=== PATIENT | male | born 1965 | race Caucasian/White ===

== ENCOUNTER 2018-05-23 04:22 | Inpatient (IN) | payer BC ==
[2018-05-23] MEDS ORDERED: Ondansetron 4 MG/2 ML SDV IVPUSH ONE (04:43)
[2018-05-23] MEDS ORDERED: Ketorolac 30 MG/ML SDV IVPUSH ONE (04:43)
[2018-05-23] MEDS: Sodium Chloride 0.9% 1,000 ML IV ONE ×2 (04:45→06:00)
--- NOTE | 2018-05-23 04:45 | EDM.PDOC ---
ED HPI GENERAL MEDICAL PROBLEM - General Stated Complaint: ABDOMINAL PAIN Time Seen by Provider: 05/23/18 04:44 Source of Information: Reports: Patient, Family - History of Present Illness INITIAL COMMENTS - FREE TEXT/NARRATIVE: 53 yo with sudden severe abd pain since mid night,cramping,associated with vomiting x4. Vomiting contains food eaten >12 h ago. Has a h/o of diverticulitis ,SBO,hemicolectomy, hernia repair x 3 in 2014. Has been doing relatively well since 2014. Abdomen Pain Score (Numeric/FACES): 10 - Related Data Allergies Allergy/AdvReac Type Severity Reaction Status Date / Time aspirin Allergy Cannot Verified 05/23/18 05:11 Remember morphine Allergy Rash Verified 05/23/18 05:11 Home Meds: Home Meds NK [No Known Home Meds] 05/23/18 [History] Past Medical History - Past Surgical History GI Surgical History: Reports: Hernia, Abdominal ED ROS GENERAL - Review of Systems Review Of Systems: ROS reveals no pertinent complaints other than HPI. ED EXAM, GI/ABD - Physical Exam Exam: See Below Exam Limited By: Uncooperative General Appearance: Alert, Anxious GI/Abdominal Exam: Distended, Tender (Male) Exam: Deferred Rectal (Males) Exam: Deferred Psychiatric: Anxious Skin Exam: Warm Course - Vital Signs Last Recorded V/S: Last Vital Signs Temp 97.6 F 05/23/18 05:05 Pulse Resp 17 05/23/18 05:05 BP 138/87 05/23/18 05:05 Pulse Ox 97 05/23/18 05:05 - Orders/Labs/Meds Orders: Active Orders 24 hr Category Date Time Status Abdomen Pelvis w Cont [CT] Stat Exams 05/23/18 04:43 Ordered UA W/MICROSCOPIC [URIN] Stat Lab 05/23/18 04:43 Ordered Diatrizoate Shana/Diatrizoate Na [Gastrografin 37%] Med 05/23/18 05:30 Active 30 ml PO . DIRECTED fentaNYL [Sublimaze] Med 05/23/18 04:43 Active 50 mcg IVPUSH Q30M PRN Medication Orders Diatrizoate Meglum/Diatrizoate Sod (Gastrografin 37%) 30 ml PO . DIRECTED ESTHER Last Admin: 05/23/18 06:48 Dose: 30 ml Fentanyl (Sublimaze) 50 mcg IVPUSH Q30M PRN PRN Reason: Breakthrough Pain Last Admin: 05/23/18 05:24 Dose: 50 mcg Labs: Laboratory Tests 05/23/18 05/23/18 Range/Units 04:52 04:52 WBC 15.1 H (4.5-12.0) X10-3/uL RBC 5.67 (4.30-5.75) x10(6)uL Hgb 17.0 H D (11.5-15.5) g/dL Hct 50.2 D (30.0-51.3) % MCV 88.5 (80-96) fL MCH 29.9 (27.7-33.6) pg MCHC 33.8 (32.2-35.4) g/dL RDW 12.6 (11.5-15.5) % Plt Count 248 (125-369) X10(3)uL MPV 10.0 (7.4-10.4) fL Add Manual Diff Yes Neutrophils % (Manual) 87 H (46-82) % Lymphocytes % (Manual) 11 L (13-37) % Monocytes % (Manual) 2 L (4-12) % Sodium 140 (135-145) mmol/L Potassium 4.5 (3.5-5.3) mmol/L Chloride 103 (100-110) mmol/L Carbon Dioxide 25 (21-32) mmol/L BUN 22 H (7-18) mg/dL Creatinine 1.3 (0.70-1.30) mg/dL Est Cr Clr Drug Dosing TNP Estimated GFR (MDRD) 58 L (>60) BUN/Creatinine Ratio 16.9 (9-20) Glucose 165 H (80-116) mg/dL Calcium 9.0 (8.6-10.2) mg/dL Total Bilirubin 0.8 (0.1-1.3) mg/dL AST 13 (5-25) IU/L ALT 29 (12-36) U/L Alkaline Phosphatase 68 (56-112) IU/L Total Protein 7.9 (6.0-8.0) g/dL Albumin 4.0 (3.5-5.2) g/dL Globulin 3.9 g/dL Albumin/Globulin Ratio 1.0 Amylase 53 (25-115) U/L Meds: Medications Generic Name Dose Route Start Last Admin Trade Name Justin PRN Reason Stop Dose Admin Diatrizoate Meglum/Diatrizoate Sod 30 ml 05/23/18 05:30 05/23/18 06:48 Gastrografin 37% PO 30 ml . DIRECTED ESTHER Administration Fentanyl 50 mcg 05/23/18 04:43 05/23/18 05:24 Sublimaze IVPUSH 50 mcg Q30M PRN Administration Breakthrough Pain Discontinued Medications Generic Name Dose Route Start Last Admin Trade Name Justin PRN Reason Stop Dose Admin Sodium Chloride 1,000 mls @ 999 mls/hr 05/23/18 04:45 05/23/18 06:00 Normal Saline IV 05/23/18 05:45 999 mls/hr .BOLUS ONE Administration Iopamidol 100 ml 05/23/18 05:30 05/23/18 06:48 Isovue-370 (76%) IV 05/23/18 05:31 100 ml . DIRECTED ONE Administration Ketorolac Tromethamine 30 mg 05/23/18 04:43 05/23/18 04:54 Toradol IVPUSH 05/23/18 04:44 30 mg ONETIME ONE Administration Ondansetron HCl 8 mg 05/23/18 04:43 05/23/18 04:54 Zofran IVPUSH 05/23/18 04:44 8 mg ONETIME ONE Administration Departure - Departure Time of Disposition: 06:53 Disposition: Still A Patient 30 Condition: Poor Clinical Impression: Abdominal pain, Small bowel obstruction - Discharge Information Referrals: PCP,None [Primary Care Provider] - - Problem List & Annotations (1) Small bowel obstruction SNOMED Code(s): 687929534 Code(s): K56.69 - OTHER INTESTINAL OBSTRUCTION * DO NOT USE * Status: Acute Current Visit: No - Problem List Review Problem List Initiated/Reviewed/Updated: Yes - My Orders Last 24 Hours: My Active Orders 05/23/18 04:43 Abdomen Pelvis w Cont [CT] Stat UA W/MICROSCOPIC [URIN] Stat fentaNYL [Sublimaze] 50 mcg IVPUSH Q30M PRN 05/23/18 05:30 Diatrizoate Shana/Diatrizoate Na [Gastrografin 37%] 30 ml PO . DIRECTED - Assessment/Plan Last 24 Hours: My Active Orders 05/23/18 04:43 Abdomen Pelvis w Cont [CT] Stat UA W/MICROSCOPIC [URIN] Stat fentaNYL [Sublimaze] 50 mcg IVPUSH Q30M PRN 05/23/18 05:30 Diatrizoate Shana/Diatrizoate Na [Gastrografin 37%] 30 ml PO . DIRECTED Plan: I suspect SBO. Will give IVF,fentanyl ,and obtain CT abd Pelvis. Dr Dodge will take over care.
[2018-05-23] MEDS: fentaNYL 100 MCG/2 ML SDV IVPUSH PRN ×7 (05:24→21:52)
[2018-05-23] MEDS ORDERED: Diatrizoate Meglumine/Diatrizoate Sodium 37% 30 ML Bottle PO SCH (05:30)
[2018-05-23] MEDS ORDERED: Iopamidol 755 Mg/ML 100 ML Bottle IV ONE (05:30)
[2018-05-23] MEDS ORDERED: Lidocaine 2% Jelly 5 ML Urojet MUCMEM ONE (07:21)
[2018-05-23] MEDS ORDERED: Lidocaine 2% HCl 6 ML JEL.PF.APP ONE (07:29)
[2018-05-23] MEDS ORDERED: Sodium Chloride 0.9% 1,000 ML IV SCH ×2 (07:30→12:15)
[2018-05-23] MEDS ORDERED: fentaNYL 100 MCG/2 ML SDV IVPUSH ONE (08:37)
[2018-05-23] MEDS ORDERED: Lactated Ringers 1,000 ML IV SCH (08:45)
[2018-05-23] MEDS ORDERED: Ondansetron 4 MG Tab.DIS PO PRN (09:29)
--- NOTE | 2018-05-23 12:13 | PCM.HP ---
H&P History of Present Illness - General Date of Service: 05/23/18 Admit Problem/Dx: Admission Diagnosis/Problem Admission Diagnosis/Problem Partial small bowel obstruction Source of Information: Patient, Family, Old Records, Provider History Limitations: Reports: No Limitations - History of Present Illness Initial Comments - Free Text/Narative: Patient is a 53-year-old male in very good health who has a history of partial sigmoid resection in November 2013. He had difficulties with a ventral hernia following the procedure and had initial repair in February 2014 followed by a redo again with mesh in May 2014. From February 2014 to August 2014 at 3 hospitalizations for partial bowel obstruction with adhesions which resolved spontaneously with decompression. He's had no problems since that time. Last night he and his were out at a birthday green party and when they got home he started to feel nauseated. He had some mild abdominal pain. Fairly rapidly worsened until about 10:30 PM he started vomiting and didn't stop until 4 AM when he asked his to bring him into the emergency department. He continued to vomit until an NG was placed. He is feeling better now that he's had some pain medicine. He had no fevers, no chills, no sweats. Has otherwise been in good health. Past medical history: As above. Patient also has a history of mild splenomegaly on CT scan in the past which is unchanged on this morning CT. 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 He drinks about 2 beers a week usually just on the weekend with friends. He is and his Celeste is here with him today. He has 2 children, a 9-year-old and a 14-year-old. Family history: The patient's mother is living and had a breast cancer. She 75. The patient's father has gout 76. He has 2 sisters and 2 brothers who are in good health. Abdomen Pain Score (Numeric/FACES): 6 - Related Data Allergies/Adverse Reactions: Allergies Allergy/AdvReac Type Severity Reaction Status Date / Time aspirin Allergy Cannot Verified 05/23/18 05:11 Remember morphine Allergy Rash Verified 05/23/18 05:11 Home Medications: Home Meds NK [No Known Home Meds] 05/23/18 [History] Past Medical History HEENT History: Reports: Impaired Vision Gastrointestinal History: Reports: Bowel Obstruction, Diverticulosis, Hemorrhoids, Other (See Below) Other Gastrointestinal History: inguinal hernia and visceral hernia Musculoskeletal History: Reports: Back Pain, Chronic Neurological History: Reports: Brain Injury, Concussion, Head Trauma, Other ( See Below) Other Neuro History: short term memory impairment Dermatologic History: Reports: None - Infectious Disease History Infectious Disease History: Reports: Chicken Pox, Mumps - Past Surgical History Head Surgeries/Procedures: Reports: None GI Surgical History: Reports: Appendectomy, Colon, Colonoscopy, Hernia, Abdominal, Hernia, Inguinal, Hernia Repair/Other Neurological Surgical History: Reports: None Musculoskeletal Surgical History: Reports: None Dermatological Surgical History: Reports: None Social & Family History - Family History GI: Reports: Celiac Disease Musculoskeletal: Reports: Gout Neurological: Reports: Dementia, Migraines Psychiatric: Reports: Anxiety, Autism Dermatologic: Reports: None Oncologic: Reports: Breast, Colon - Tobacco Use Smoking Status *Q: Heavy Tobacco Smoker Years of Tobacco use: 30 Packs/Tins Daily: 0.5 Month/Year Tobacco Last Used: 05/2018 Tobacco Use Comment: Would like nicotine patches possibly. Second Hand Smoke Exposure: No - Caffeine Use Caffeine Use: Reports: Soda Caffeine Use Comment: Has about a 20oz mountain dew a day - Alcohol Use Days Per Week of Alcohol Use: 2 Number of Drinks Per Day: 1 Total Drinks Per Week: 2 Date of Last Drink: 05/22/18 Time of Last Drink: 19:00 - Recreational Drug Use Recreational Drug Use: No H&P Review of Systems - Review of Systems: Review Of Systems: ROS reveals no pertinent complaints other than HPI. Exam - Exam Exam: See Below - Vital Signs Vital Signs: Last Vital Signs Temp 36.3 C 05/23/18 10:00 Pulse 84 05/23/18 10:00 Resp 16 05/23/18 10:00 BP 153/102 H 05/23/18 10:00 Pulse Ox 99 05/23/18 10:00 Weight: 105.959 kg - Exam General: Sedated (from pain medication) HEENT: PERRLA, Other (conjunctiva injected.) Neck: Supple Lungs: Clear to Auscultation, Normal Respiratory Effort Cardiovascular: Regular Rate, Regular Rhythm, Normal S1, Normal S2 GI/Abdominal Exam: Distended, Tender, Abnormal Bowel Sounds (very diminished and high sounding when present. Abd tympanitic, with mild tenderness over the lower abd.) Extremities: No Pedal Edema - Patient Data Lab Results Last 24 hrs: Laboratory Results - last 24 hr 05/23/18 05/23/18 05/23/18 Range/Units 04:52 04:52 08:55 WBC 15.1 H (4.5-12.0) X10-3/uL RBC 5.67 (4.30-5.75) x10(6)uL Hgb 17.0 H D (11.5-15.5) g/dL Hct 50.2 D (30.0-51.3) % MCV 88.5 (80-96) fL MCH 29.9 (27.7-33.6) pg MCHC 33.8 (32.2-35.4) g/dL RDW 12.6 (11.5-15.5) % Plt Count 248 (125-369) X10(3)uL MPV 10.0 (7.4-10.4) fL Add Manual Diff Yes Neutrophils % (Manual) 87 H (46-82) % Lymphocytes % (Manual) 11 L (13-37) % Monocytes % (Manual) 2 L (4-12) % Sodium 140 (135-145) mmol/L Potassium 4.5 (3.5-5.3) mmol/L Chloride 103 (100-110) mmol/L Carbon Dioxide 25 (21-32) mmol/L BUN 22 H (7-18) mg/dL Creatinine 1.3 (0.70-1.30) mg/dL Est Cr Clr Drug Dosing TNP Estimated GFR (MDRD) 58 L (>60) BUN/Creatinine Ratio 16.9 (9-20) Glucose 165 H (80-116) mg/dL Lactic Acid (0.4-2.2) mmol/L Calcium 9.0 (8.6-10.2) mg/dL Total Bilirubin 0.8 (0.1-1.3) mg/dL AST 13 (5-25) IU/L ALT 29 (12-36) U/L Alkaline Phosphatase 68 (56-112) IU/L Total Protein 7.9 (6.0-8.0) g/dL Albumin 4.0 (3.5-5.2) g/dL Globulin 3.9 g/dL Albumin/Globulin Ratio 1.0 Amylase 53 (25-115) U/L Urine Color Yellow (YELLOW) Urine Appearance Clear (CLEAR) Urine pH 5.0 (5.0-6.5) Ur Specific [place] 1.015 (1.010-1.025) Urine Protein Negative (NEGATIVE) mg/dL Urine Glucose (UA) Normal (NEGATIVE) mg/dL Urine Ketones Negative (NEGATIVE) mg/dL Urine Occult Blood Negative (NEGATIVE) Urine Nitrite Negative (NEGATIVE) Urine Bilirubin Small H (NEGATIVE) Urine Urobilinogen 1 H (NEGATIVE) mg/dL Ur Leukocyte Esterase Negative (NEGATIVE) Urine WBC 0-5 (0) Ur Squamous Epith Cells Few H (NS,R,O) Urine Bacteria Few H (NS) 05/23/18 Range/Units 09:10 WBC (4.5-12.0) X10-3/uL RBC (4.30-5.75) x10(6)uL Hgb (11.5-15.5) g/dL Hct (30.0-51.3) % MCV (80-96) fL MCH (27.7-33.6) pg MCHC (32.2-35.4) g/dL RDW (11.5-15.5) % Plt Count (125-369) X10(3)uL MPV (7.4-10.4) fL Add Manual Diff Neutrophils % (Manual) (46-82) % Lymphocytes % (Manual) (13-37) % Monocytes % (Manual) (4-12) % Sodium (135-145) mmol/L Potassium (3.5-5.3) mmol/L Chloride (100-110) mmol/L Carbon Dioxide (21-32) mmol/L BUN (7-18) mg/dL Creatinine (0.70-1.30) mg/dL Est Cr Clr Drug Dosing Estimated GFR (MDRD) (>60) BUN/Creatinine Ratio (9-20) Glucose (80-116) mg/dL Lactic Acid 1.3 (0.4-2.2) mmol/L Calcium (8.6-10.2) mg/dL Total Bilirubin (0.1-1.3) mg/dL AST (5-25) IU/L ALT (12-36) U/L Alkaline Phosphatase (56-112) IU/L Total Protein (6.0-8.0) g/dL Albumin (3.5-5.2) g/dL Globulin g/dL Albumin/Globulin Ratio Amylase (25-115) U/L Urine Color (YELLOW) Urine Appearance (CLEAR) Urine pH (5.0-6.5) Ur Specific [place] (1.010-1.025) Urine Protein (NEGATIVE) mg/dL Urine Glucose (UA) (NEGATIVE) mg/dL Urine Ketones (NEGATIVE) mg/dL Urine Occult Blood (NEGATIVE) Urine Nitrite (NEGATIVE) Urine Bilirubin (NEGATIVE) Urine Urobilinogen (NEGATIVE) mg/dL Ur Leukocyte Esterase (NEGATIVE) Urine WBC (0) Ur Squamous Epith Cells (NS,R,O) Urine Bacteria (NS) Result Diagrams: 05/23/18 04:52 05/23/18 04:52 - Problem List (1) Partial small bowel obstruction SNOMED Code(s): 109727933 ICD Code: K56.600 - PARTIAL INTESTINAL OBSTRUCTION, UNSPECIFIED TO CAUSE Status: Acute Current Visit: Yes Problem Details: CT scan shows a partial small bowel obstruction. Patient has an NG placed. He is receiving IV fluids. Pain management with fentanyl. Nausea management with Zofran. Dr. Sterling has seen the patient and will follow. Problem List Initiated/Reviewed/Updated: Yes Orders Last 24hrs: Active Orders 24 hr Category Date Time Status Patient Status [ADT] Routine ADT 05/23/18 09:29 Active Gastrointestinal Tube Mgmt [RC] 08,16,00 Care 05/23/18 07:24 Active Height and Weight [RC] 06 Care 05/23/18 09:29 Active Intake and Output [RC] 06,14,22 Care 05/23/18 09:30 Active Notify Provider Consults [RC] ASDIRECTED Care 05/23/18 09:33 Active Notify Provider Vital Signs [RC] ASDIRECTED Care 05/23/18 09:30 Active Oxygen Therapy [RC] PRN Care 05/23/18 09:29 Active Up ad Mimi [RC] ASDIRECTED Care 05/23/18 09:29 Active VTE/DVT Education [RC] Per Unit Routine Care 05/23/18 09:29 Active Vital Signs [RC] Q4H Care 05/23/18 09:29 Active Consult to Physician [CONS] Routine Cons 05/23/18 09:32 Ordered Nothing per Oral Now Diet [DIET] Diet 05/23/18 Breakfast Ordered Abdomen Pelvis w Cont [CT] Stat Exams 05/23/18 04:43 Taken CBC WITH AUTO DIFF [HEME] AM Lab 05/24/18 05:11 Ordered CBC WITH AUTO DIFF [HEME] Timed Lab 05/23/18 15:00 Ordered COMPREHENSIVE METABOLIC PN,CMP [CHEM] AM Lab 05/24/18 05:11 Ordered Diatrizoate Shana/Diatrizoate Na [Gastrografin 37%] Med 05/23/18 05:30 Active 30 ml PO . DIRECTED Lactated Ringers [Ringers, Lactated] 1,000 ml Med 05/23/18 08:45 Active IV ASDIRECTED Ondansetron [Zofran ODT] Med 05/23/18 09:29 Active 4 mg PO Q4H PRN Sodium Chloride 0.9% @ 100 MLS/HR(1,000ml) Med 05/23/18 12:15 Ordered Sodium Chloride 0.9% [Normal Saline] 1,000 ml IV ASDIRECTED Sodium Chloride 0.9% [Normal Saline] 1,000 ml Med 05/23/18 07:30 Active IV ASDIRECTED Sodium Chloride 0.9% [Normal Saline] 1,000 ml Med 05/23/18 12:15 Ordered IV ASDIRECTED fentaNYL [Sublimaze] Med 05/23/18 04:43 Active 50 mcg IVPUSH Q30M PRN fentaNYL [Sublimaze] Med 05/23/18 09:32 Active 50 mcg IVPUSH Q30M PRN Antiembolic Hose [OM.PC] Per Unit Routine Oth 05/23/18 09:30 Ordered Sequential Compression Device [OM.PC] Per Unit Routine Oth 05/23/18 09:30 Ordered Resuscitation Status Routine Resus Stat 05/23/18 09:29 Ordered Medication Orders Diatrizoate Meglum/Diatrizoate Sod (Gastrografin 37%) 30 ml PO . DIRECTED ESTHER Last Admin: 05/23/18 06:48 Dose: 30 ml Fentanyl (Sublimaze) 50 mcg IVPUSH Q30M PRN PRN Reason: Breakthrough Pain Last Admin: 05/23/18 11:20 Dose: 50 mcg Admin: 05/23/18 06:58 Dose: 50 mcg Admin: 05/23/18 05:24 Dose: 50 mcg Fentanyl (Sublimaze) 50 mcg IVPUSH Q30M PRN PRN Reason: abd pain Sodium Chloride (Normal Saline) 1,000 mls @ 100 mls/hr IV ASDIRECTED ESTHER Lactated Ringer's (Ringers, Lactated) 1,000 mls @ 250 mls/hr IV ASDIRECTED ESTHER Last Admin: 05/23/18 08:50 Dose: 250 mls/hr Sodium Chloride (Normal Saline) 1,000 mls @ 100 mls/hr IV ASDIRECTED ESTHER Sodium Chloride (Normal Saline) 1,000 mls @ 250 mls/hr IV ASDIRECTED ESTHER Stop: 05/23/18 16:14 Ondansetron HCl (Zofran Odt) 4 mg PO Q4H PRN PRN Reason: nausea, able to take PO Assessment/Plan Comment:: Code status discussed with patient and and patient is a full code.
--- NOTE | 2018-05-23 12:33 | ER ---
DATE SEEN: 05/23/2018 ADMISSION NOTE ADDENDUM: The patient was previously seen by Dr. Silver early in the morning, at 4:30 in the morning. He has results of the CAT scan that has returned. 1. He has a partial small bowel obstruction, no pneumatosis, no free air. Mild fluid noted in the pelvis - small amount of ascites. 2. Partial proximal sigmoid resection. 3. Status post umbilical hernia repair. 4. Unchanged left inguinal hernia with fat present. 5. Mild atelectasis. 6. Gallstones. 7. Several small nodes in the base of the lung. The patient's white count is 15,000, PMNs 87, lymphs 11, monos 2. Sodium 140, potassium 4.5, otherwise normal electrolytes. BUN and creatinine ratio 16.9, glucose 169. Otherwise, CMP is normal. Lactate pending. ASSESSMENT: The patient has new partial small bowel obstruction, low grade, dilation of proximal loops. PLAN: Admit. Status has been discussed with Dr. Sterling and Dr. Stafford. The patient received 100 mcg of fentanyl. Lactate was ordered and lactated Ringer's started at 250 an hour. NG tube return was 600 mL. Put out 300 mL of urine. /[id number] JESUS/SHAYNE
--- NOTE | 2018-05-23 17:13 | CONS ---
DATE OF CONSULTATION: 05/23/2018 HISTORY OF PRESENT ILLNESS: This 53-year-old male presents to the emergency room with a several-hour history of abdominal pain. He says yesterday afternoon, he noted some mild discomfort after eating and drinking a small amount. During the night, he developed more severe abdominal pain and had several episodes of vomiting and this prompted his presentation to the emergency room. He says his pain is somewhat diffuse across the mid abdomen. He has no back pain. There has been no difficulty voiding. He says his last bowel movement was a small stool at midnight. The patient notes that he has had episodes of pain somewhat similar to this in the past, but does not think that any of them have been this severe. Some of these episodes have necessitated hospitalization for partial bowel obstruction, but have resolved spontaneously. The patient's past medical history is notable for previous surgeries. These included a sigmoid colon resection and then ventral hernia repairs x2 with mesh. These were performed in 2013. He has had some pain from the mesh intermittently, but does not think his current pain feels like that. He is otherwise generally healthy. MEDICATIONS: He does not take any routine prescription medications at home. ALLERGIES: He is allergic to aspirin and morphine. 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 FAMILY HISTORY: Noncontributory. SYSTEM REVIEW: The patient denies any recent cough, cold, or sore throat symptoms. He has not been experiencing any chest pain or palpitations. No difficulty breathing or cough. No difficulty voiding. PHYSICAL EXAMINATION: VITAL SIGNS: Temperature 97.6, pulse 89, blood pressure is 144/94, weight is 232 pounds. GENERAL: The patient is an adult male. He is resting comfortably after IV analgesics and is somewhat sleepy from this. HEENT: His head is normocephalic. No scleral icterus. No cervical masses. HEART: Regular without murmur. LUNGS: Clear. ABDOMEN: The patient's abdomen shows diffuse distention. It is, however, soft. I do not note any abdominal mass or guarding. There is mild tenderness to direct palpation, which is not well localized. Surgical scars were intact. I do not feel any additional hernias. No inguinal masses or tenderness are identified. EXTREMITIES: No edema or tenderness. DIAGNOSTIC DATA: Laboratory studies show an elevated serum white blood cell count of 15,100, hemoglobin is 17, 87% segs, no bands. Potassium is normal at 4.5, BUN is 22, creatinine is 1.3. Liver functions are normal. Urinalysis unremarkable. CT scan of the abdomen has been performed with oral contrast. This was interpreted as showing a mild partial small bowel obstruction with mild mid small bowel dilation and collapsed distal small bowel, and no mass or other acute abnormalities were identified. IMPRESSION: Partial small bowel obstruction, likely secondary to adhesions. RECOMMENDATIONS: We will plan period of observation with IV hydration, NG suction, and pain control. Further clinical treatment will depend on the patient's clinical course and response to attempted conservative management. /[id number] MICK/SHAYNE SUBRAMANIAN
[2018-05-23] MEDS ORDERED: Ondansetron 4 MG/2 ML SDV IVPUSH PRN (18:24)
--- NOTE | 2018-05-23 19:20 | PCM.SURGPN ---
- General Info Date of Service: 05/23/18 - Review of Systems Systems Review Comment:: No flatus during the day. 250cc out NG last shift and not much coming out now even after adjusting tube. Abdomen remains distended but soft. Intermittantly tender upper abdomen. WBC improved this PM - Patient Data Vitals - Most Recent: Last Vital Signs Temp 97.8 F 05/23/18 14:00 Pulse 71 05/23/18 14:00 Resp 18 05/23/18 14:00 BP 157/97 H 05/23/18 14:00 Pulse Ox 95 05/23/18 14:00 Weight - Most Recent: 233 lb 9.6 oz I&O - Last 24 Hours: Intake & Output 05/23/18 05/23/18 05/23/18 06:59 14:59 22:59 Intake Total 1000 2250 20 Output Total 1125 270 Balance 1000 1125 -250 Lab Results Last 24 Hrs: Laboratory Results - last 24 hr 05/23/18 05/23/18 05/23/18 Range/Units 04:52 04:52 08:55 WBC 15.1 H (4.5-12.0) X10-3/uL RBC 5.67 (4.30-5.75) x10(6)uL Hgb 17.0 H D (11.5-15.5) g/dL Hct 50.2 D (30.0-51.3) % MCV 88.5 (80-96) fL MCH 29.9 (27.7-33.6) pg MCHC 33.8 (32.2-35.4) g/dL RDW 12.6 (11.5-15.5) % Plt Count 248 (125-369) X10(3)uL MPV 10.0 (7.4-10.4) fL Neut % (Auto) (46-82) % Lymph % (Auto) (13-37) % [place] % (Auto) (4-12) % Eos % (Auto) (1.0-5.0) % Baso % (Auto) (0-2) % Neut # (Auto) (1.6-8.3) # Lymph # (Auto) (0.6-5.0) # [place] # (Auto) (0.0-1.3) # Eos # (Auto) (0.0-0.8) # Baso # (Auto) (0.0-0.2) # Add Manual Diff Yes Neutrophils % (Manual) 87 H (46-82) % Lymphocytes % (Manual) 11 L (13-37) % Monocytes % (Manual) 2 L (4-12) % Sodium 140 (135-145) mmol/L Potassium 4.5 (3.5-5.3) mmol/L Chloride 103 (100-110) mmol/L Carbon Dioxide 25 (21-32) mmol/L BUN 22 H (7-18) mg/dL Creatinine 1.3 (0.70-1.30) mg/dL Est Cr Clr Drug Dosing TNP Estimated GFR (MDRD) 58 L (>60) BUN/Creatinine Ratio 16.9 (9-20) Glucose 165 H (80-116) mg/dL Lactic Acid (0.4-2.2) mmol/L Calcium 9.0 (8.6-10.2) mg/dL Total Bilirubin 0.8 (0.1-1.3) mg/dL AST 13 (5-25) IU/L ALT 29 (12-36) U/L Alkaline Phosphatase 68 (56-112) IU/L Total Protein 7.9 (6.0-8.0) g/dL Albumin 4.0 (3.5-5.2) g/dL Globulin 3.9 g/dL Albumin/Globulin Ratio 1.0 Amylase 53 (25-115) U/L Urine Color Yellow (YELLOW) Urine Appearance Clear (CLEAR) Urine pH 5.0 (5.0-6.5) Ur Specific [place] 1.015 (1.010-1.025) Urine Protein Negative (NEGATIVE) mg/dL Urine Glucose (UA) Normal (NEGATIVE) mg/dL Urine Ketones Negative (NEGATIVE) mg/dL Urine Occult Blood Negative (NEGATIVE) Urine Nitrite Negative (NEGATIVE) Urine Bilirubin Small H (NEGATIVE) Urine Urobilinogen 1 H (NEGATIVE) mg/dL Ur Leukocyte Esterase Negative (NEGATIVE) Urine WBC 0-5 (0) Ur Squamous Epith Cells Few H (NS,R,O) Urine Bacteria Few H (NS) 05/23/18 05/23/18 Range/Units 09:10 15:04 WBC 12.7 H (4.5-12.0) X10-3/uL RBC 5.04 (4.30-5.75) x10(6)uL Hgb 15.2 (11.5-15.5) g/dL Hct 44.9 (30.0-51.3) % MCV 89.0 (80-96) fL MCH 30.1 (27.7-33.6) pg MCHC 33.9 (32.2-35.4) g/dL RDW 12.9 (11.5-15.5) % Plt Count 188 (125-369) X10(3)uL MPV 9.6 (7.4-10.4) fL Neut % (Auto) 80.4 (46-82) % Lymph % (Auto) 12.0 L (13-37) % [place] % (Auto) 6.2 (4-12) % Eos % (Auto) 1 (1.0-5.0) % Baso % (Auto) 1 (0-2) % Neut # (Auto) 10.2 H (1.6-8.3) # Lymph # (Auto) 1.5 (0.6-5.0) # [place] # (Auto) 0.8 (0.0-1.3) # Eos # (Auto) 0.1 (0.0-0.8) # Baso # (Auto) 0.1 (0.0-0.2) # Add Manual Diff Neutrophils % (Manual) (46-82) % Lymphocytes % (Manual) (13-37) % Monocytes % (Manual) (4-12) % Sodium (135-145) mmol/L Potassium (3.5-5.3) mmol/L Chloride (100-110) mmol/L Carbon Dioxide (21-32) mmol/L BUN (7-18) mg/dL Creatinine (0.70-1.30) mg/dL Est Cr Clr Drug Dosing Estimated GFR (MDRD) (>60) BUN/Creatinine Ratio (9-20) Glucose (80-116) mg/dL Lactic Acid 1.3 (0.4-2.2) mmol/L Calcium (8.6-10.2) mg/dL Total Bilirubin (0.1-1.3) mg/dL AST (5-25) IU/L ALT (12-36) U/L Alkaline Phosphatase (56-112) IU/L Total Protein (6.0-8.0) g/dL Albumin (3.5-5.2) g/dL Globulin g/dL Albumin/Globulin Ratio Amylase (25-115) U/L Urine Color (YELLOW) Urine Appearance (CLEAR) Urine pH (5.0-6.5) Ur Specific [place] (1.010-1.025) Urine Protein (NEGATIVE) mg/dL Urine Glucose (UA) (NEGATIVE) mg/dL Urine Ketones (NEGATIVE) mg/dL Urine Occult Blood (NEGATIVE) Urine Nitrite (NEGATIVE) Urine Bilirubin (NEGATIVE) Urine Urobilinogen (NEGATIVE) mg/dL Ur Leukocyte Esterase (NEGATIVE) Urine WBC (0) Ur Squamous Epith Cells (NS,R,O) Urine Bacteria (NS) Med Orders - Current: Current Medications Diatrizoate Meglum/Diatrizoate Sod (Gastrografin 37%) 30 ml PO . DIRECTED [facility] Last Admin: 05/23/18 06:48 Dose: 30 ml Fentanyl (Sublimaze) 50 mcg IVPUSH Q30M PRN PRN Reason: Breakthrough Pain Last Admin: 05/23/18 19:07 Dose: 50 mcg Fentanyl (Sublimaze) 50 mcg IVPUSH Q30M PRN PRN Reason: abd pain Lactated Ringer's (Ringers, Lactated) 1,000 mls @ 250 mls/hr IV ASDIRECTED [facility] Last Admin: 05/23/18 08:50 Dose: 250 mls/hr Sodium Chloride (Normal Saline) 1,000 mls @ 100 mls/hr IV ASDIRECTED [facility] Nicotine Polacrilex (Commit) 2 mg CHEW Q1H PRN PRN Reason: tobacco abuse Ondansetron HCl (Zofran Odt) 4 mg PO Q4H PRN PRN Reason: nausea, able to take PO Last Admin: 05/23/18 18:08 Dose: 4 mg Ondansetron HCl (Zofran) 4 mg IVPUSH Q4H PRN PRN Reason: Nausea/Vomiting Discontinued Medications Fentanyl (Sublimaze) 100 mcg IVPUSH ONETIME ONE Stop: 05/23/18 08:38 Last Admin: 05/23/18 08:47 Dose: 100 mcg Sodium Chloride (Normal Saline) 1,000 mls @ 999 mls/hr IV .BOLUS ONE Stop: 05/23/18 05:45 Last Infusion: 05/23/18 07:00 Dose: 100 mls/hr Sodium Chloride (Normal Saline) 1,000 mls @ 100 mls/hr IV ASDIRECTED [facility] Sodium Chloride (Normal Saline) 1,000 mls @ 250 mls/hr IV ASDIRECTED [facility] Stop: 05/23/18 16:14 Last Admin: 05/23/18 13:00 Dose: 250 mls/hr Influenza Virus Vaccine (Pharmacy To Dose - Influenza Vaccine) 1 each IM ONETIME ONE Stop: 05/23/18 10:42 Iopamidol (Isovue-370 (76%)) 100 ml IV . DIRECTED ONE Stop: 05/23/18 05:31 Last Admin: 05/23/18 06:48 Dose: 100 ml Ketorolac Tromethamine (Toradol) 30 mg IVPUSH ONETIME ONE Stop: 05/23/18 04:44 Last Admin: 05/23/18 04:54 Dose: 30 mg Lidocaine HCl (Xylocaine 2% Jelly) 5 ml MUCMEM ONETIME ONE Stop: 05/23/18 07:22 Last Admin: 05/23/18 08:15 Dose: Not Given Lidocaine HCl (Glydo) Confirm Administered Dose 6 ml .ROUTE .STK-MED ONE Stop: 05/23/18 07:30 Last Admin: 05/23/18 07:47 Dose: 6 ml Ondansetron HCl (Zofran) 8 mg IVPUSH ONETIME ONE Stop: 05/23/18 04:44 Last Admin: 05/23/18 04:54 Dose: 8 mg - Problem List Review Problem List Initiated/Reviewed/Updated: Yes - My Orders Last 24 Hours: Active Orders 24 hr Category Date Time Status Patient Status [ADT] Routine ADT 05/23/18 09:29 Active Gastrointestinal Tube Mgmt [RC] 08,16,00 Care 05/23/18 07:24 Active Height and Weight [RC] 06 Care 05/23/18 09:29 Active Intake and Output [RC] QSHIFT Care 05/23/18 09:30 Active Notify Provider Consults [RC] ASDIRECTED Care 05/23/18 09:33 Active Notify Provider Vital Signs [RC] ASDIRECTED Care 05/23/18 09:30 Active Oxygen Therapy [RC] PRN Care 05/23/18 09:29 Active Up ad Mimi [RC] ASDIRECTED Care 05/23/18 09:29 Active Vital Signs [RC] Q4H Care 05/23/18 09:29 Active Consult to Physician [CONS] Routine Cons 05/23/18 09:32 Ordered Nothing per Oral Now Diet [DIET] Diet 05/23/18 Breakfast Ordered Abdomen Pelvis w Cont [CT] Stat Exams 05/23/18 04:43 Taken CBC WITH AUTO DIFF [HEME] AM Lab 05/24/18 05:11 Ordered COMPREHENSIVE METABOLIC PN,CMP [CHEM] AM Lab 05/24/18 05:11 Ordered Diatrizoate Shana/Diatrizoate Na [Gastrografin 37%] Med 05/23/18 05:30 Active 30 ml PO . DIRECTED Lactated Ringers [Ringers, Lactated] 1,000 ml Med 05/23/18 08:45 Active IV ASDIRECTED Nicotine Polacrilex [Commit] Med 05/23/18 12:17 Active 2 mg CHEW Q1H PRN Ondansetron [Zofran ODT] Med 05/23/18 09:29 Active 4 mg PO Q4H PRN Ondansetron [Zofran] Med 05/23/18 18:24 Active 4 mg IVPUSH Q4H PRN Sodium Chloride 0.9% [Normal Saline] 1,000 ml Med 05/23/18 16:15 Active IV ASDIRECTED fentaNYL [Sublimaze] Med 05/23/18 04:43 Active 50 mcg IVPUSH Q30M PRN fentaNYL [Sublimaze] Med 05/23/18 09:32 Active 50 mcg IVPUSH Q30M PRN Antiembolic Hose [OM.PC] Per Unit Routine Oth 05/23/18 09:30 Ordered Sequential Compression Device [OM.PC] Per Unit Routine Oth 05/23/18 09:30 Ordered Resuscitation Status Routine Resus Stat 05/23/18 09:29 Ordered Medication Orders Diatrizoate Meglum/Diatrizoate Sod (Gastrografin 37%) 30 ml PO . DIRECTED [facility] Last Admin: 05/23/18 06:48 Dose: 30 ml Fentanyl (Sublimaze) 50 mcg IVPUSH Q30M PRN PRN Reason: Breakthrough Pain Last Admin: 05/23/18 19:07 Dose: 50 mcg Admin: 05/23/18 16:55 Dose: 50 mcg Admin: 05/23/18 13:49 Dose: 50 mcg Admin: 05/23/18 11:20 Dose: 50 mcg Admin: 05/23/18 06:58 Dose: 50 mcg Admin: 05/23/18 05:24 Dose: 50 mcg Fentanyl (Sublimaze) 50 mcg IVPUSH Q30M PRN PRN Reason: abd pain Lactated Ringer's (Ringers, Lactated) 1,000 mls @ 250 mls/hr IV ASDIRECTED [facility] Last Admin: 05/23/18 08:50 Dose: 250 mls/hr Sodium Chloride (Normal Saline) 1,000 mls @ 100 mls/hr IV ASDIRECTED [facility] Nicotine Polacrilex (Commit) 2 mg CHEW Q1H PRN PRN Reason: tobacco abuse Ondansetron HCl (Zofran Odt) 4 mg PO Q4H PRN PRN Reason: nausea, able to take PO Last Admin: 05/23/18 18:08 Dose: 4 mg Ondansetron HCl (Zofran) 4 mg IVPUSH Q4H PRN PRN Reason: Nausea/Vomiting - Assessment Assessment (Free Text/Narrative):: Small bowel obstruction likely secondary to adhesions - Plan Plan (Free Text/Narrative):: continue obsevation but if no improvement may need laparotomy
[2018-05-23] MEDS: Sodium Chloride 0.9% 1,000 ML IV SCH (21:02)
--- NOTE | 2018-05-23 21:19 | PCM.SURGPN ---
- General Info Date of Service: 05/23/18 - Review of Systems Systems Review Comment:: Feeling much better now. Pain minimal and resting comfortably Still has upper abdominal distention but soft and less tender to palpation discussed with patient and . - Patient Data Vitals - Most Recent: Last Vital Signs Temp 98.6 F 05/23/18 18:00 Pulse 76 05/23/18 18:00 Resp 16 05/23/18 18:00 BP 155/100 H 05/23/18 18:00 Pulse Ox 94 L 05/23/18 18:00 Weight - Most Recent: 233 lb 9.6 oz I&O - Last 24 Hours: Intake & Output 05/23/18 05/23/18 05/23/18 06:59 14:59 22:59 Intake Total 1000 2250 20 Output Total 1125 270 Balance 1000 1125 -250 Lab Results Last 24 Hrs: Laboratory Results - last 24 hr 05/23/18 05/23/18 05/23/18 Range/Units 04:52 04:52 08:55 WBC 15.1 H (4.5-12.0) X10-3/uL RBC 5.67 (4.30-5.75) x10(6)uL Hgb 17.0 H D (11.5-15.5) g/dL Hct 50.2 D (30.0-51.3) % MCV 88.5 (80-96) fL MCH 29.9 (27.7-33.6) pg MCHC 33.8 (32.2-35.4) g/dL RDW 12.6 (11.5-15.5) % Plt Count 248 (125-369) X10(3)uL MPV 10.0 (7.4-10.4) fL Neut % (Auto) (46-82) % Lymph % (Auto) (13-37) % [place] % (Auto) (4-12) % Eos % (Auto) (1.0-5.0) % Baso % (Auto) (0-2) % Neut # (Auto) (1.6-8.3) # Lymph # (Auto) (0.6-5.0) # [place] # (Auto) (0.0-1.3) # Eos # (Auto) (0.0-0.8) # Baso # (Auto) (0.0-0.2) # Add Manual Diff Yes Neutrophils % (Manual) 87 H (46-82) % Lymphocytes % (Manual) 11 L (13-37) % Monocytes % (Manual) 2 L (4-12) % Sodium 140 (135-145) mmol/L Potassium 4.5 (3.5-5.3) mmol/L Chloride 103 (100-110) mmol/L Carbon Dioxide 25 (21-32) mmol/L BUN 22 H (7-18) mg/dL Creatinine 1.3 (0.70-1.30) mg/dL Est Cr Clr Drug Dosing TNP Estimated GFR (MDRD) 58 L (>60) BUN/Creatinine Ratio 16.9 (9-20) Glucose 165 H (80-116) mg/dL Lactic Acid (0.4-2.2) mmol/L Calcium 9.0 (8.6-10.2) mg/dL Total Bilirubin 0.8 (0.1-1.3) mg/dL AST 13 (5-25) IU/L ALT 29 (12-36) U/L Alkaline Phosphatase 68 (56-112) IU/L Total Protein 7.9 (6.0-8.0) g/dL Albumin 4.0 (3.5-5.2) g/dL Globulin 3.9 g/dL Albumin/Globulin Ratio 1.0 Amylase 53 (25-115) U/L Urine Color Yellow (YELLOW) Urine Appearance Clear (CLEAR) Urine pH 5.0 (5.0-6.5) Ur Specific [place] 1.015 (1.010-1.025) Urine Protein Negative (NEGATIVE) mg/dL Urine Glucose (UA) Normal (NEGATIVE) mg/dL Urine Ketones Negative (NEGATIVE) mg/dL Urine Occult Blood Negative (NEGATIVE) Urine Nitrite Negative (NEGATIVE) Urine Bilirubin Small H (NEGATIVE) Urine Urobilinogen 1 H (NEGATIVE) mg/dL Ur Leukocyte Esterase Negative (NEGATIVE) Urine WBC 0-5 (0) Ur Squamous Epith Cells Few H (NS,R,O) Urine Bacteria Few H (NS) 05/23/18 05/23/18 Range/Units 09:10 15:04 WBC 12.7 H (4.5-12.0) X10-3/uL RBC 5.04 (4.30-5.75) x10(6)uL Hgb 15.2 (11.5-15.5) g/dL Hct 44.9 (30.0-51.3) % MCV 89.0 (80-96) fL MCH 30.1 (27.7-33.6) pg MCHC 33.9 (32.2-35.4) g/dL RDW 12.9 (11.5-15.5) % Plt Count 188 (125-369) X10(3)uL MPV 9.6 (7.4-10.4) fL Neut % (Auto) 80.4 (46-82) % Lymph % (Auto) 12.0 L (13-37) % [place] % (Auto) 6.2 (4-12) % Eos % (Auto) 1 (1.0-5.0) % Baso % (Auto) 1 (0-2) % Neut # (Auto) 10.2 H (1.6-8.3) # Lymph # (Auto) 1.5 (0.6-5.0) # [place] # (Auto) 0.8 (0.0-1.3) # Eos # (Auto) 0.1 (0.0-0.8) # Baso # (Auto) 0.1 (0.0-0.2) # Add Manual Diff Neutrophils % (Manual) (46-82) % Lymphocytes % (Manual) (13-37) % Monocytes % (Manual) (4-12) % Sodium (135-145) mmol/L Potassium (3.5-5.3) mmol/L Chloride (100-110) mmol/L Carbon Dioxide (21-32) mmol/L BUN (7-18) mg/dL Creatinine (0.70-1.30) mg/dL Est Cr Clr Drug Dosing Estimated GFR (MDRD) (>60) BUN/Creatinine Ratio (9-20) Glucose (80-116) mg/dL Lactic Acid 1.3 (0.4-2.2) mmol/L Calcium (8.6-10.2) mg/dL Total Bilirubin (0.1-1.3) mg/dL AST (5-25) IU/L ALT (12-36) U/L Alkaline Phosphatase (56-112) IU/L Total Protein (6.0-8.0) g/dL Albumin (3.5-5.2) g/dL Globulin g/dL Albumin/Globulin Ratio Amylase (25-115) U/L Urine Color (YELLOW) Urine Appearance (CLEAR) Urine pH (5.0-6.5) Ur Specific [place] (1.010-1.025) Urine Protein (NEGATIVE) mg/dL Urine Glucose (UA) (NEGATIVE) mg/dL Urine Ketones (NEGATIVE) mg/dL Urine Occult Blood (NEGATIVE) Urine Nitrite (NEGATIVE) Urine Bilirubin (NEGATIVE) Urine Urobilinogen (NEGATIVE) mg/dL Ur Leukocyte Esterase (NEGATIVE) Urine WBC (0) Ur Squamous Epith Cells (NS,R,O) Urine Bacteria (NS) Med Orders - Current: Current Medications Diatrizoate Meglum/Diatrizoate Sod (Gastrografin 37%) 30 ml PO . DIRECTED [facility] Last Admin: 05/23/18 06:48 Dose: 30 ml Fentanyl (Sublimaze) 50 mcg IVPUSH Q30M PRN PRN Reason: Breakthrough Pain Last Admin: 05/23/18 19:07 Dose: 50 mcg Fentanyl (Sublimaze) 50 mcg IVPUSH Q30M PRN PRN Reason: abd pain Lactated Ringer's (Ringers, Lactated) 1,000 mls @ 250 mls/hr IV ASDIRECTED [facility] Last Admin: 05/23/18 08:50 Dose: 250 mls/hr Sodium Chloride (Normal Saline) 1,000 mls @ 100 mls/hr IV ASDIRECTED [facility] Last Admin: 05/23/18 21:02 Dose: 100 mls/hr Nicotine Polacrilex (Commit) 2 mg CHEW Q1H PRN PRN Reason: tobacco abuse Ondansetron HCl (Zofran Odt) 4 mg PO Q4H PRN PRN Reason: nausea, able to take PO Last Admin: 05/23/18 18:08 Dose: 4 mg Ondansetron HCl (Zofran) 4 mg IVPUSH Q4H PRN PRN Reason: Nausea/Vomiting Discontinued Medications Fentanyl (Sublimaze) 100 mcg IVPUSH ONETIME ONE Stop: 05/23/18 08:38 Last Admin: 05/23/18 08:47 Dose: 100 mcg Sodium Chloride (Normal Saline) 1,000 mls @ 999 mls/hr IV .BOLUS ONE Stop: 05/23/18 05:45 Last Infusion: 05/23/18 07:00 Dose: 100 mls/hr Sodium Chloride (Normal Saline) 1,000 mls @ 100 mls/hr IV ASDIRECTED [facility] Sodium Chloride (Normal Saline) 1,000 mls @ 250 mls/hr IV ASDIRECTED [facility] Stop: 05/23/18 16:14 Last Admin: 05/23/18 13:00 Dose: 250 mls/hr Influenza Virus Vaccine (Pharmacy To Dose - Influenza Vaccine) 1 each IM ONETIME ONE Stop: 05/23/18 10:42 Iopamidol (Isovue-370 (76%)) 100 ml IV . DIRECTED ONE Stop: 05/23/18 05:31 Last Admin: 05/23/18 06:48 Dose: 100 ml Ketorolac Tromethamine (Toradol) 30 mg IVPUSH ONETIME ONE Stop: 05/23/18 04:44 Last Admin: 05/23/18 04:54 Dose: 30 mg Lidocaine HCl (Xylocaine 2% Jelly) 5 ml MUCMEM ONETIME ONE Stop: 05/23/18 07:22 Last Admin: 05/23/18 08:15 Dose: Not Given Lidocaine HCl (Glydo) Confirm Administered Dose 6 ml .ROUTE .STK-MED ONE Stop: 05/23/18 07:30 Last Admin: 05/23/18 07:47 Dose: 6 ml Ondansetron HCl (Zofran) 8 mg IVPUSH ONETIME ONE Stop: 05/23/18 04:44 Last Admin: 05/23/18 04:54 Dose: 8 mg - Problem List Review Problem List Initiated/Reviewed/Updated: Yes - My Orders Last 24 Hours: Active Orders 24 hr Category Date Time Status Patient Status [ADT] Routine ADT 05/23/18 09:29 Active Gastrointestinal Tube Mgmt [RC] 08,16,00 Care 05/23/18 07:24 Active Height and Weight [RC] 06 Care 05/23/18 09:29 Active Intake and Output [RC] 06,14,22 Care 05/23/18 09:30 Active Notify Provider Consults [RC] ASDIRECTED Care 05/23/18 09:33 Active Notify Provider Vital Signs [RC] ASDIRECTED Care 05/23/18 09:30 Active Oxygen Therapy [RC] PRN Care 05/23/18 09:29 Active Up ad Mimi [RC] ASDIRECTED Care 05/23/18 09:29 Active Vital Signs [RC] Q4H Care 05/23/18 09:29 Active Consult to Physician [CONS] Routine Cons 05/23/18 09:32 Ordered Nothing per Oral Now Diet [DIET] Diet 05/23/18 Breakfast Ordered Abdomen Pelvis w Cont [CT] Stat Exams 05/23/18 04:43 Taken CBC WITH AUTO DIFF [HEME] AM Lab 05/24/18 05:11 Ordered COMPREHENSIVE METABOLIC PN,CMP [CHEM] AM Lab 05/24/18 05:11 Ordered Diatrizoate Shana/Diatrizoate Na [Gastrografin 37%] Med 05/23/18 05:30 Active 30 ml PO . DIRECTED Lactated Ringers [Ringers, Lactated] 1,000 ml Med 05/23/18 08:45 Active IV ASDIRECTED Nicotine Polacrilex [Commit] Med 05/23/18 12:17 Active 2 mg CHEW Q1H PRN Ondansetron [Zofran ODT] Med 05/23/18 09:29 Active 4 mg PO Q4H PRN Ondansetron [Zofran] Med 05/23/18 18:24 Active 4 mg IVPUSH Q4H PRN Sodium Chloride 0.9% [Normal Saline] 1,000 ml Med 05/23/18 16:15 Active IV ASDIRECTED fentaNYL [Sublimaze] Med 05/23/18 04:43 Active 50 mcg IVPUSH Q30M PRN fentaNYL [Sublimaze] Med 05/23/18 09:32 Active 50 mcg IVPUSH Q30M PRN Antiembolic Hose [OM.PC] Per Unit Routine Oth 05/23/18 09:30 Ordered Sequential Compression Device [OM.PC] Per Unit Routine Oth 05/23/18 09:30 Ordered Resuscitation Status Routine Resus Stat 05/23/18 09:29 Ordered Medication Orders Diatrizoate Meglum/Diatrizoate Sod (Gastrografin 37%) 30 ml PO . DIRECTED [facility] Last Admin: 05/23/18 06:48 Dose: 30 ml Fentanyl (Sublimaze) 50 mcg IVPUSH Q30M PRN PRN Reason: Breakthrough Pain Last Admin: 05/23/18 19:07 Dose: 50 mcg Admin: 10/07/18 16:55 Dose: 50 mcg Admin: 05/23/18 13:49 Dose: 50 mcg Admin: 05/23/18 11:20 Dose: 50 mcg Admin: 05/23/18 06:58 Dose: 50 mcg Admin: 05/23/18 05:24 Dose: 50 mcg Fentanyl (Sublimaze) 50 mcg IVPUSH Q30M PRN PRN Reason: abd pain Lactated Ringer's (Ringers, Lactated) 1,000 mls @ 250 mls/hr IV ASDIRECTED [facility] Last Admin: 05/23/18 08:50 Dose: 250 mls/hr Sodium Chloride (Normal Saline) 1,000 mls @ 100 mls/hr IV ASDIRECTED [facility] Last Admin: 05/23/18 21:02 Dose: 100 mls/hr Nicotine Polacrilex (Commit) 2 mg CHEW Q1H PRN PRN Reason: tobacco abuse Ondansetron HCl (Zofran Odt) 4 mg PO Q4H PRN PRN Reason: nausea, able to take PO Last Admin: 05/23/18 18:08 Dose: 4 mg Ondansetron HCl (Zofran) 4 mg IVPUSH Q4H PRN PRN Reason: Nausea/Vomiting - Assessment Assessment (Free Text/Narrative):: Small bowel obstruction - Plan Plan (Free Text/Narrative):: Will continue to observe for now with IV and NG decompression
[2018-05-24] MEDS: fentaNYL 100 MCG/2 ML SDV IVPUSH PRN ×2 (01:28→04:06)
[2018-05-24] MEDS: Sodium Chloride 0.9% 1,000 ML IV SCH (07:04)
--- NOTE | 2018-05-24 07:18 | PCM.SURGPN ---
- General Info Date of Service: 05/24/18 Post-Op Diagnosis: Small bowel obstruction - Review of Systems Pulmonary: Reports: No Symptoms Gastrointestinal: Reports: Abdominal Pain (improved), Flatus (small amount during the night). Denies: Nausea, Vomiting - Patient Data Vitals - Most Recent: Last Vital Signs Temp 98 F 05/24/18 04:08 Pulse 76 05/23/18 22:00 Resp 17 05/24/18 04:08 BP 150/97 H 05/24/18 04:08 Pulse Ox 96 05/24/18 04:08 Weight - Most Recent: 233 lb 9.6 oz I&O - Last 24 Hours: Intake & Output 05/23/18 05/24/18 05/24/18 22:59 06:59 14:59 Intake Total 20 1171 Output Total 910 400 Balance -890 771 Lab Results Last 24 Hrs: Laboratory Results - last 24 hr 05/23/18 05/23/18 05/23/18 Range/Units 08:55 09:10 15:04 WBC 12.7 H (4.5-12.0) X10-3/uL RBC 5.04 (4.30-5.75) x10(6)uL Hgb 15.2 (11.5-15.5) g/dL Hct 44.9 (30.0-51.3) % MCV 89.0 (80-96) fL MCH 30.1 (27.7-33.6) pg MCHC 33.9 (32.2-35.4) g/dL RDW 12.9 (11.5-15.5) % Plt Count 188 (125-369) X10(3)uL MPV 9.6 (7.4-10.4) fL Neut % (Auto) 80.4 (46-82) % Lymph % (Auto) 12.0 L (13-37) % [place] % (Auto) 6.2 (4-12) % Eos % (Auto) 1 (1.0-5.0) % Baso % (Auto) 1 (0-2) % Neut # (Auto) 10.2 H (1.6-8.3) # Lymph # (Auto) 1.5 (0.6-5.0) # [place] # (Auto) 0.8 (0.0-1.3) # Eos # (Auto) 0.1 (0.0-0.8) # Baso # (Auto) 0.1 (0.0-0.2) # Lactic Acid 1.3 (0.4-2.2) mmol/L Urine Color Yellow (YELLOW) Urine Appearance Clear (CLEAR) Urine pH 5.0 (5.0-6.5) Ur Specific [place] 1.015 (1.010-1.025) Urine Protein Negative (NEGATIVE) mg/dL Urine Glucose (UA) Normal (NEGATIVE) mg/dL Urine Ketones Negative (NEGATIVE) mg/dL Urine Occult Blood Negative (NEGATIVE) Urine Nitrite Negative (NEGATIVE) Urine Bilirubin Small H (NEGATIVE) Urine Urobilinogen 1 H (NEGATIVE) mg/dL Ur Leukocyte Esterase Negative (NEGATIVE) Urine WBC 0-5 (0) Ur Squamous Epith Cells Few H (NS,R,O) Urine Bacteria Few H (NS) 05/24/18 Range/Units 06:45 WBC 8.9 (4.5-12.0) X10-3/uL RBC 4.83 (4.30-5.75) x10(6)uL Hgb 14.4 (11.5-15.5) g/dL Hct 43.0 (30.0-51.3) % MCV 88.9 (80-96) fL MCH 29.9 (27.7-33.6) pg MCHC 33.6 (32.2-35.4) g/dL RDW 13.0 (11.5-15.5) % Plt Count 183 (125-369) X10(3)uL MPV 9.7 (7.4-10.4) fL Neut % (Auto) 67.6 (46-82) % Lymph % (Auto) 21.8 (13-37) % [place] % (Auto) 7.6 (4-12) % Eos % (Auto) 2 (1.0-5.0) % Baso % (Auto) 1 (0-2) % Neut # (Auto) 6.0 (1.6-8.3) # Lymph # (Auto) 1.9 (0.6-5.0) # [place] # (Auto) 0.7 (0.0-1.3) # Eos # (Auto) 0.2 (0.0-0.8) # Baso # (Auto) 0.1 (0.0-0.2) # Lactic Acid (0.4-2.2) mmol/L Urine Color (YELLOW) Urine Appearance (CLEAR) Urine pH (5.0-6.5) Ur Specific [place] (1.010-1.025) Urine Protein (NEGATIVE) mg/dL Urine Glucose (UA) (NEGATIVE) mg/dL Urine Ketones (NEGATIVE) mg/dL Urine Occult Blood (NEGATIVE) Urine Nitrite (NEGATIVE) Urine Bilirubin (NEGATIVE) Urine Urobilinogen (NEGATIVE) mg/dL Ur Leukocyte Esterase (NEGATIVE) Urine WBC (0) Ur Squamous Epith Cells (NS,R,O) Urine Bacteria (NS) Med Orders - Current: Current Medications Diatrizoate Meglum/Diatrizoate Sod (Gastrografin 37%) 30 ml PO . DIRECTED [facility] Last Admin: 05/23/18 06:48 Dose: 30 ml Fentanyl (Sublimaze) 50 mcg IVPUSH Q30M PRN PRN Reason: abd pain Last Admin: 05/24/18 04:06 Dose: 50 mcg Sodium Chloride (Normal Saline) 1,000 mls @ 100 mls/hr IV ASDIRECTED [facility] Last Admin: 05/24/18 07:04 Dose: 100 mls/hr Nicotine Polacrilex (Commit) 2 mg CHEW Q1H PRN PRN Reason: tobacco abuse Ondansetron HCl (Zofran Odt) 4 mg PO Q4H PRN PRN Reason: nausea, able to take PO Last Admin: 05/23/18 18:08 Dose: 4 mg Ondansetron HCl (Zofran) 4 mg IVPUSH Q4H PRN PRN Reason: Nausea/Vomiting Discontinued Medications Fentanyl (Sublimaze) 50 mcg IVPUSH Q30M PRN PRN Reason: Breakthrough Pain Last Admin: 05/23/18 19:07 Dose: 50 mcg Fentanyl (Sublimaze) 100 mcg IVPUSH ONETIME ONE Stop: 05/23/18 08:38 Last Admin: 05/23/18 08:47 Dose: 100 mcg Sodium Chloride (Normal Saline) 1,000 mls @ 999 mls/hr IV .BOLUS ONE Stop: 05/23/18 05:45 Last Infusion: 05/23/18 07:00 Dose: 100 mls/hr Sodium Chloride (Normal Saline) 1,000 mls @ 100 mls/hr IV ASDIRECTED [facility] Lactated Ringer's (Ringers, Lactated) 1,000 mls @ 250 mls/hr IV ASDIRECTED [facility] Last Admin: 05/23/18 08:50 Dose: 250 mls/hr Sodium Chloride (Normal Saline) 1,000 mls @ 250 mls/hr IV ASDIRECTED [facility] Stop: 05/23/18 16:14 Last Admin: 05/23/18 13:00 Dose: 250 mls/hr Influenza Virus Vaccine (Pharmacy To Dose - Influenza Vaccine) 1 each IM ONETIME ONE Stop: 05/23/18 10:42 Iopamidol (Isovue-370 (76%)) 100 ml IV . DIRECTED ONE Stop: 05/23/18 05:31 Last Admin: 05/23/18 06:48 Dose: 100 ml Ketorolac Tromethamine (Toradol) 30 mg IVPUSH ONETIME ONE Stop: 05/23/18 04:44 Last Admin: 05/23/18 04:54 Dose: 30 mg Lidocaine HCl (Xylocaine 2% Jelly) 5 ml MUCMEM ONETIME ONE Stop: 05/23/18 07:22 Last Admin: 05/23/18 08:15 Dose: Not Given Lidocaine HCl (Glydo) Confirm Administered Dose 6 ml .ROUTE .STK-MED ONE Stop: 05/23/18 07:30 Last Admin: 05/23/18 07:47 Dose: 6 ml Ondansetron HCl (Zofran) 8 mg IVPUSH ONETIME ONE Stop: 05/23/18 04:44 Last Admin: 05/23/18 04:54 Dose: 8 mg - Exam General: Alert, Oriented GI/Abdominal Exam: Soft, Non-Tender, Distended (but less so then last night) - Problem List Review Problem List Initiated/Reviewed/Updated: Yes - My Orders Last 24 Hours: Active Orders 24 hr Category Date Time Status Patient Status [ADT] Routine ADT 05/23/18 09:29 Active Gastrointestinal Tube Mgmt [RC] 08,16,00 Care 05/23/18 07:24 Active Height and Weight [RC] 06 Care 05/23/18 09:29 Active Intake and Output [RC] 06,14,22 Care 05/23/18 09:30 Active Notify Provider Consults [RC] ASDIRECTED Care 05/23/18 09:33 Active Notify Provider Vital Signs [RC] ASDIRECTED Care 05/23/18 09:30 Active Oxygen Therapy [RC] PRN Care 05/23/18 09:29 Active Up ad Mimi [RC] ASDIRECTED Care 05/23/18 09:29 Active Vital Signs [RC] Q4H Care 05/23/18 09:29 Active Consult to Physician [CONS] Routine Cons 05/23/18 09:32 Ordered Nothing per Oral Now Diet [DIET] Diet 05/23/18 Breakfast Ordered COMPREHENSIVE METABOLIC PN,CMP [CHEM] AM Lab 05/24/18 06:45 Received Nicotine Polacrilex [Commit] Med 05/23/18 12:17 Active 2 mg CHEW Q1H PRN Ondansetron [Zofran ODT] Med 05/23/18 09:29 Active 4 mg PO Q4H PRN Ondansetron [Zofran] Med 05/23/18 18:24 Active 4 mg IVPUSH Q4H PRN Sodium Chloride 0.9% [Normal Saline] 1,000 ml Med 05/23/18 16:15 Active IV ASDIRECTED fentaNYL [Sublimaze] Med 05/23/18 09:32 Active 50 mcg IVPUSH Q30M PRN Antiembolic Hose [OM.PC] Per Unit Routine Oth 05/23/18 09:30 Ordered Sequential Compression Device [OM.PC] Per Unit Routine Oth 05/23/18 09:30 Ordered Resuscitation Status Routine Resus Stat 05/23/18 09:29 Ordered Medication Orders Diatrizoate Meglum/Diatrizoate Sod (Gastrografin 37%) 30 ml PO . DIRECTED [facility] Last Admin: 05/23/18 06:48 Dose: 30 ml Fentanyl (Sublimaze) 50 mcg IVPUSH Q30M PRN PRN Reason: abd pain Last Admin: 05/24/18 04:06 Dose: 50 mcg Admin: 05/24/18 01:28 Dose: 50 mcg Admin: 05/23/18 21:52 Dose: 50 mcg Sodium Chloride (Normal Saline) 1,000 mls @ 100 mls/hr IV ASDIRECTED [facility] Last Admin: 05/24/18 07:04 Dose: 100 mls/hr Infusion: 05/24/18 07:02 Dose: 100 mls/hr Admin: 05/23/18 21:02 Dose: 100 mls/hr Nicotine Polacrilex (Commit) 2 mg CHEW Q1H PRN PRN Reason: tobacco abuse Ondansetron HCl (Zofran Odt) 4 mg PO Q4H PRN PRN Reason: nausea, able to take PO Last Admin: 05/23/18 18:08 Dose: 4 mg Ondansetron HCl (Zofran) 4 mg IVPUSH Q4H PRN PRN Reason: Nausea/Vomiting - Assessment Assessment (Free Text/Narrative):: Small bowel obstruction - improving - Plan Plan (Free Text/Narrative):: Clamp NG
--- NOTE | 2018-05-24 08:29 | PCM.PN ---
- General Info Date of Service: 05/24/18 Subjective Update: Patient is a 53-year-old male on hospital day #2 for small bowel obstruction, partial. Doing very well this morning. Ambulating in the halls, no nausea or vomiting. NG has had almost no output overnight. Blood pressure has been running a little high. No chest pain, no shortness of breath. Has passed some flatus. No pain in the abdomen. - Patient Data Vitals - Most Recent: Last Vital Signs Temp 37.1 C 05/24/18 07:53 Pulse 86 05/24/18 07:53 Resp 18 05/24/18 07:53 BP 159/105 H 05/24/18 07:53 Pulse Ox 95 05/24/18 07:53 Weight - Most Recent: 105.959 kg I&O - Last 24 Hours: Intake & Output 05/23/18 05/24/18 05/24/18 22:59 06:59 14:59 Intake Total 20 1171 Output Total 910 400 Balance -890 771 Lab Results Last 24 Hours: Laboratory Results - last 24 hr 05/23/18 05/23/18 05/23/18 Range/Units 08:55 09:10 15:04 WBC 12.7 H (4.5-12.0) X10-3/uL RBC 5.04 (4.30-5.75) x10(6)uL Hgb 15.2 (11.5-15.5) g/dL Hct 44.9 (30.0-51.3) % MCV 89.0 (80-96) fL MCH 30.1 (27.7-33.6) pg MCHC 33.9 (32.2-35.4) g/dL RDW 12.9 (11.5-15.5) % Plt Count 188 (125-369) X10(3)uL MPV 9.6 (7.4-10.4) fL Neut % (Auto) 80.4 (46-82) % Lymph % (Auto) 12.0 L (13-37) % [place] % (Auto) 6.2 (4-12) % Eos % (Auto) 1 (1.0-5.0) % Baso % (Auto) 1 (0-2) % Neut # (Auto) 10.2 H (1.6-8.3) # Lymph # (Auto) 1.5 (0.6-5.0) # [place] # (Auto) 0.8 (0.0-1.3) # Eos # (Auto) 0.1 (0.0-0.8) # Baso # (Auto) 0.1 (0.0-0.2) # Sodium (135-145) mmol/L Potassium (3.5-5.3) mmol/L Chloride (100-110) mmol/L Carbon Dioxide (21-32) mmol/L BUN (7-18) mg/dL Creatinine (0.70-1.30) mg/dL Est Cr Clr Drug Dosing mL/min Estimated GFR (MDRD) (>60) BUN/Creatinine Ratio (9-20) Glucose (80-116) mg/dL Lactic Acid 1.3 (0.4-2.2) mmol/L Calcium (8.6-10.2) mg/dL Total Bilirubin (0.1-1.3) mg/dL AST (5-25) IU/L ALT (12-36) U/L Alkaline Phosphatase (56-112) IU/L Total Protein (6.0-8.0) g/dL Albumin (3.5-5.2) g/dL Globulin g/dL Albumin/Globulin Ratio Urine Color Yellow (YELLOW) Urine Appearance Clear (CLEAR) Urine pH 5.0 (5.0-6.5) Ur Specific [place] 1.015 (1.010-1.025) Urine Protein Negative (NEGATIVE) mg/dL Urine Glucose (UA) Normal (NEGATIVE) mg/dL Urine Ketones Negative (NEGATIVE) mg/dL Urine Occult Blood Negative (NEGATIVE) Urine Nitrite Negative (NEGATIVE) Urine Bilirubin Small H (NEGATIVE) Urine Urobilinogen 1 H (NEGATIVE) mg/dL Ur Leukocyte Esterase Negative (NEGATIVE) Urine WBC 0-5 (0) Ur Squamous Epith Cells Few H (NS,R,O) Urine Bacteria Few H (NS) 05/24/18 05/24/18 Range/Units 06:45 06:45 WBC 8.9 (4.5-12.0) X10-3/uL RBC 4.83 (4.30-5.75) x10(6)uL Hgb 14.4 (11.5-15.5) g/dL Hct 43.0 (30.0-51.3) % MCV 88.9 (80-96) fL MCH 29.9 (27.7-33.6) pg MCHC 33.6 (32.2-35.4) g/dL RDW 13.0 (11.5-15.5) % Plt Count 183 (125-369) X10(3)uL MPV 9.7 (7.4-10.4) fL Neut % (Auto) 67.6 (46-82) % Lymph % (Auto) 21.8 (13-37) % [place] % (Auto) 7.6 (4-12) % Eos % (Auto) 2 (1.0-5.0) % Baso % (Auto) 1 (0-2) % Neut # (Auto) 6.0 (1.6-8.3) # Lymph # (Auto) 1.9 (0.6-5.0) # [place] # (Auto) 0.7 (0.0-1.3) # Eos # (Auto) 0.2 (0.0-0.8) # Baso # (Auto) 0.1 (0.0-0.2) # Sodium 142 (135-145) mmol/L Potassium 4.0 (3.5-5.3) mmol/L Chloride 107 (100-110) mmol/L Carbon Dioxide 27 (21-32) mmol/L BUN 17 (7-18) mg/dL Creatinine 1.1 (0.70-1.30) mg/dL Est Cr Clr Drug Dosing 74.28 mL/min Estimated GFR (MDRD) > 60 (>60) BUN/Creatinine Ratio 15.5 (9-20) Glucose 110 (80-116) mg/dL Lactic Acid (0.4-2.2) mmol/L Calcium 7.9 L (8.6-10.2) mg/dL Total Bilirubin 1.4 H (0.1-1.3) mg/dL AST 10 D (5-25) IU/L ALT 20 D (12-36) U/L Alkaline Phosphatase 55 L (56-112) IU/L Total Protein 6.1 (6.0-8.0) g/dL Albumin 2.8 L (3.5-5.2) g/dL Globulin 3.3 g/dL Albumin/Globulin Ratio 0.9 Urine Color (YELLOW) Urine Appearance (CLEAR) Urine pH (5.0-6.5) Ur Specific [place] (1.010-1.025) Urine Protein (NEGATIVE) mg/dL Urine Glucose (UA) (NEGATIVE) mg/dL Urine Ketones (NEGATIVE) mg/dL Urine Occult Blood (NEGATIVE) Urine Nitrite (NEGATIVE) Urine Bilirubin (NEGATIVE) Urine Urobilinogen (NEGATIVE) mg/dL Ur Leukocyte Esterase (NEGATIVE) Urine WBC (0) Ur Squamous Epith Cells (NS,R,O) Urine Bacteria (NS) Med Orders - Current: Current Medications Diatrizoate Meglum/Diatrizoate Sod (Gastrografin 37%) 30 ml PO . DIRECTED [facility] Last Admin: 05/23/18 06:48 Dose: 30 ml Fentanyl (Sublimaze) 50 mcg IVPUSH Q30M PRN PRN Reason: abd pain Last Admin: 05/24/18 04:06 Dose: 50 mcg Sodium Chloride (Normal Saline) 1,000 mls @ 100 mls/hr IV ASDIRECTED [facility] Last Admin: 05/24/18 07:04 Dose: 100 mls/hr Nicotine Polacrilex (Commit) 2 mg CHEW Q1H PRN PRN Reason: tobacco abuse Ondansetron HCl (Zofran Odt) 4 mg PO Q4H PRN PRN Reason: nausea, able to take PO Last Admin: 05/23/18 18:08 Dose: 4 mg Ondansetron HCl (Zofran) 4 mg IVPUSH Q4H PRN PRN Reason: Nausea/Vomiting Discontinued Medications Fentanyl (Sublimaze) 50 mcg IVPUSH Q30M PRN PRN Reason: Breakthrough Pain Last Admin: 05/23/18 19:07 Dose: 50 mcg Fentanyl (Sublimaze) 100 mcg IVPUSH ONETIME ONE Stop: 05/23/18 08:38 Last Admin: 05/23/18 08:47 Dose: 100 mcg Sodium Chloride (Normal Saline) 1,000 mls @ 999 mls/hr IV .BOLUS ONE Stop: 05/23/18 05:45 Last Infusion: 05/23/18 07:00 Dose: 100 mls/hr Sodium Chloride (Normal Saline) 1,000 mls @ 100 mls/hr IV ASDIRECTED [facility] Lactated Ringer's (Ringers, Lactated) 1,000 mls @ 250 mls/hr IV ASDIRECTED [facility] Last Admin: 05/23/18 08:50 Dose: 250 mls/hr Sodium Chloride (Normal Saline) 1,000 mls @ 250 mls/hr IV ASDIRECTED [facility] Stop: 05/23/18 16:14 Last Admin: 05/23/18 13:00 Dose: 250 mls/hr Influenza Virus Vaccine (Pharmacy To Dose - Influenza Vaccine) 1 each IM ONETIME ONE Stop: 05/23/18 10:42 Iopamidol (Isovue-370 (76%)) 100 ml IV . DIRECTED ONE Stop: 05/23/18 05:31 Last Admin: 05/23/18 06:48 Dose: 100 ml Ketorolac Tromethamine (Toradol) 30 mg IVPUSH ONETIME ONE Stop: 05/23/18 04:44 Last Admin: 05/23/18 04:54 Dose: 30 mg Lidocaine HCl (Xylocaine 2% Jelly) 5 ml MUCMEM ONETIME ONE Stop: 05/23/18 07:22 Last Admin: 05/23/18 08:15 Dose: Not Given Lidocaine HCl (Glydo) Confirm Administered Dose 6 ml .ROUTE .STK-MED ONE Stop: 05/23/18 07:30 Last Admin: 05/23/18 07:47 Dose: 6 ml Ondansetron HCl (Zofran) 8 mg IVPUSH ONETIME ONE Stop: 05/23/18 04:44 Last Admin: 05/23/18 04:54 Dose: 8 mg - Exam General: Alert, Oriented, Cooperative, No Acute Distress HEENT: Pupils Equal, Pupils Reactive Neck: Supple Lungs: Clear to Auscultation, Normal Respiratory Effort Cardiovascular: Regular Rate, Regular Rhythm, No Murmurs GI/Abdominal Exam: Normal Bowel Sounds, Soft, Non-Tender, No Distention Back Exam: Normal Inspection Extremities: No Pedal Edema - Problem List & Annotations (1) Partial small bowel obstruction SNOMED Code(s): 976155744 Code(s): K56.600 - PARTIAL INTESTINAL OBSTRUCTION, UNSPECIFIED TO CAUSE Status: Acute Current Visit: Yes Annotation/Comment:: Significantly improved. Surgery recommended clamping NG. If no recurrent sxs, may pull and advance to clear liquids this afternoon. 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 We'll continue to monitor given his high fluid load but may need treatment as an outpatient. (3) Tobacco abuse SNOMED Code(s): 050172851 Code(s): Z72.0 - TOBACCO USE Status: Acute Current Visit: Yes Annotation/Comment:: Nicotine replacement as needed. (4) DVT prophylaxis SNOMED Code(s): 191220793, 153200364 Code(s): QQQ3259 - Status: Acute Current Visit: Yes Annotation/Comment :: Ambulation, SCDs, start lovenox this am. - Problem List Review Problem List Initiated/Reviewed/Updated: Yes - My Orders Last 24 Hours: My Active Orders 05/23/18 09:29 Patient Status [ADT] Routine Height and Weight [RC] 06 Oxygen Therapy [RC] PRN Up ad Mimi [RC] ASDIRECTED Vital Signs [RC] Q4H Ondansetron [Zofran ODT] 4 mg PO Q4H PRN Resuscitation Status Routine 05/23/18 09:30 Intake and Output [RC] 06,14,22 Notify Provider Vital Signs [RC] ASDIRECTED Antiembolic Hose [OM.PC] Per Unit Routine Sequential Compression Device [OM.PC] Per Unit Routine 05/23/18 09:32 Consult to Physician [CONS] Routine fentaNYL [Sublimaze] 50 mcg IVPUSH Q30M PRN 05/23/18 09:33 Notify Provider Consults [RC] ASDIRECTED 05/23/18 12:17 Nicotine Polacrilex [Commit] 2 mg CHEW Q1H PRN 05/23/18 16:15 Sodium Chloride 0.9% [Normal Saline] 1,000 ml IV ASDIRECTED - Plan Plan:: Code status discussed with patient and and patient is a full code.
[2018-05-24] MEDS ORDERED: Enoxaparin 40 MG/0.4 ML Syringe SUBCUT SCH (09:00)
[2018-05-24] MEDS ORDERED: Acetaminophen 325 MG Tab PO PRN (09:30)
[2018-05-24] MEDS: Nicotine Polacrilex 2 MG Loz Box CHEW PRN ×2 (13:06→15:22)
[2018-05-24 16:09] VITALS: BP 137/93
--- NOTE | 2018-05-24 16:25 | PCM.DCSUM1 ---
Discharge Summary - Hospital Course Free Text/Narrative:: Date of admission: 05/23/18 Date of discharge: 05/24/18 Consults: Dr. Sterling from general surgery Procedures: NC placement, CT scan of the abdomen and pelvis which showed us partial small bowel obstruction and mild splenomegaly which was not new. Also showed a trace ascites. History of present illness: Patient is a 53-year-old male in very good health who has a history of partial sigmoid resection in November 2013. He had difficulties with a ventral hernia following the procedure and had initial repair in February 2014 followed by a redo again with mesh in May 2014. From February 2014 to August 2014 had 3 hospitalizations for partial bowel obstruction with adhesions which resolved spontaneously with decompression. He's had no problems since that time. Night [employer] the patient and his were out at a birthday constitution party and when they got home he started to feel nauseated. He had some mild abdominal pain. Fairly rapidly worsened until about 10:30 PM he started vomiting and didn't stop until 4 AM when he asked his to bring him into the emergency department. Was hospitalized with NG, fluids, and bowel rest. Hospital Course: Patient did well throughout hospitalization. The morning after admission, pain had completely resolved. He almost no output from his NG. NG was clamped and he tolerated clear liquids, afternoon his NG was pulled and he tolerated a regular diet. He had 4 or 5 bowel movements prior to discharge. No further abdominal pain. Requested to be discharged as he was feeling pretty much back to himself again with the exception of multiple loose stools. Discharge instructions: Patient discharged home. Follow-up with primary care in the next week or 2 because of high blood pressure in the hospital. Stop tobacco use. Aware that bowel obstructions can occur or recur at any time. Should return if symptoms recur. - Discharge Data Discharge Date: 05/24/18 Discharge Disposition: Home, Self-Care 01 Condition: Stable - Discharge Diagnosis/Problem(s) (1) Partial small bowel obstruction SNOMED Code(s): 123068687 ICD Code: K56.600 - PARTIAL INTESTINAL OBSTRUCTION, UNSPECIFIED TO CAUSE Status: Acute Current Visit: Yes Problem Details: Patient tolerating regular diet, more than 4 BMs, no pain or nausea. Requesting discharge. Ok to go home, regular diet, regular activity. Follow up with PCP in a week or two. (2) HTN (hypertension) SNOMED Code(s): 21018403 ICD Code: I10 - ESSENTIAL (PRIMARY) HYPERTENSION Status: Acute Current Visit: Yes Problem Details: High while here, follow up as outpatient. (3) Tobacco abuse SNOMED Code(s): 656663074 ICD Code: Z72.0 - TOBACCO USE Status: Acute Current Visit: Yes Problem Details: Nicotine replacement as needed. Recommend cessation. (4) DVT prophylaxis SNOMED Code(s): 104352802, 640906358 ICD Code: [id number] - Status: Acute Current Visit: Yes Problem Details: Ambulation, SCDs, start lovenox this am. - Patient Summary/Data Consults: Consultations 05/23/18 09:32 Consult to Physician [CONS] Routine Consulting Provider: Buster Sterling Call Completed to Consulting Physician: Yes Reason for Consult: SBO Person Notified: [email or web address] Date Notified: 05/23/18 Time Notified: 08:30 Special Instructions: Notified by ER MD - Patient Instructions Diet: Heart Healthy Diet, Drink 8-10+ Glasses/Day Activity: As Tolerated Other/Special Instructions: You were admitted to the hospital for a partial small bowel obstruction. You had high blood pressure while you were in the hospital. You should follow up in a week or two in the clinic to have this rechecked. Drink plenty of water and stay active, walking daily. I recommend you stop your tobacco use. If you need help stopping your chew, please let your doctor know. You can return to work as soon as you want. - Discharge Plan *PRESCRIPTION DRUG MONITORING PROGRAM REVIEWED*: Not Applicable *COPY OF PRESCRIPTION DRUG MONITORING REPORT IN PATIENT KATINA: Not Applicable Home Medications: Home Meds NK [No Known Home Meds] 05/23/18 [History] Patient Handouts: Venous Thromboembolism Prevention Forms: ED Department Discharge Referrals: PCP,None [Primary Care Provider] - - Discharge Summary/Plan Comment DC Time >30 min.: Yes - Patient Data Vitals - Most Recent: Last Vital Signs Temp 36.9 C 05/24/18 16:00 Pulse 83 05/24/18 16:00 Resp 18 05/24/18 16:00 BP 137/93 H 05/24/18 16:00 Pulse Ox 97 05/24/18 16:00 Weight - Most Recent: 106.141 kg I&O - Last 24 hours: Intake & Output 05/24/18 05/24/18 05/24/18 06:59 14:59 22:59 Intake Total 1171 1830 Output Total 400 Balance 771 1830 Lab Results - Last 24 hrs: Laboratory Results - last 24 hr 05/24/18 05/24/18 Range/Units 06:45 06:45 WBC 8.9 (4.5-12.0) X10-3/uL RBC 4.83 (4.30-5.75) x10(6)uL Hgb 14.4 (11.5-15.5) g/dL Hct 43.0 (30.0-51.3) % MCV 88.9 (80-96) fL MCH 29.9 (27.7-33.6) pg MCHC 33.6 (32.2-35.4) g/dL RDW 13.0 (11.5-15.5) % Plt Count 183 (125-369) X10(3)uL MPV 9.7 (7.4-10.4) fL Neut % (Auto) 67.6 (46-82) % Lymph % (Auto) 21.8 (13-37) % [place] % (Auto) 7.6 (4-12) % Eos % (Auto) 2 (1.0-5.0) % Baso % (Auto) 1 (0-2) % Neut # (Auto) 6.0 (1.6-8.3) # Lymph # (Auto) 1.9 (0.6-5.0) # [place] # (Auto) 0.7 (0.0-1.3) # Eos # (Auto) 0.2 (0.0-0.8) # Baso # (Auto) 0.1 (0.0-0.2) # Sodium 142 (135-145) mmol/L Potassium 4.0 (3.5-5.3) mmol/L Chloride 107 (100-110) mmol/L Carbon Dioxide 27 (21-32) mmol/L BUN 17 (7-18) mg/dL Creatinine 1.1 (0.70-1.30) mg/dL Est Cr Clr Drug Dosing 74.28 mL/min Estimated GFR (MDRD) > 60 (>60) BUN/Creatinine Ratio 15.5 (9-20) Glucose 110 (80-116) mg/dL Calcium 7.9 L (8.6-10.2) mg/dL Total Bilirubin 1.4 H (0.1-1.3) mg/dL AST 10 D (5-25) IU/L ALT 20 D (12-36) U/L Alkaline Phosphatase 55 L (56-112) IU/L Total Protein 6.1 (6.0-8.0) g/dL Albumin 2.8 L (3.5-5.2) g/dL Globulin 3.3 g/dL Albumin/Globulin Ratio 0.9 Med Orders - Current: Current Medications Acetaminophen (Tylenol) 650 mg PO Q4H PRN PRN Reason: Pain Last Admin: 05/24/18 09:59 Dose: 650 mg Diatrizoate Meglum/Diatrizoate Sod (Gastrografin 37%) 30 ml PO . DIRECTED [facility] Last Admin: 05/23/18 06:48 Dose: 30 ml Enoxaparin Sodium (Lovenox) 40 mg SUBCUT DAILY [facility] Last Admin: 05/24/18 09:59 Dose: 40 mg Fentanyl (Sublimaze) 50 mcg IVPUSH Q30M PRN PRN Reason: abd pain Last Admin: 05/24/18 04:06 Dose: 50 mcg Nicotine Polacrilex (Commit) 2 mg CHEW Q1H PRN PRN Reason: tobacco abuse Last Admin: 05/24/18 15:22 Dose: 2 mg Ondansetron HCl (Zofran Odt) 4 mg PO Q4H PRN PRN Reason: nausea, able to take PO Last Admin: 05/23/18 18:08 Dose: 4 mg Ondansetron HCl (Zofran) 4 mg IVPUSH Q4H PRN PRN Reason: Nausea/Vomiting Discontinued Medications Fentanyl (Sublimaze) 50 mcg IVPUSH Q30M PRN PRN Reason: Breakthrough Pain Last Admin: 05/23/18 19:07 Dose: 50 mcg Fentanyl (Sublimaze) 100 mcg IVPUSH ONETIME ONE Stop: 05/23/18 08:38 Last Admin: 05/23/18 08:47 Dose: 100 mcg Sodium Chloride (Normal Saline) 1,000 mls @ 999 mls/hr IV .BOLUS ONE Stop: 05/23/18 05:45 Last Infusion: 05/23/18 07:00 Dose: 100 mls/hr Sodium Chloride (Normal Saline) 1,000 mls @ 100 mls/hr IV ASDIRECTED [facility] Lactated Ringer's (Ringers, Lactated) 1,000 mls @ 250 mls/hr IV ASDIRECTED [facility] Last Admin: 05/23/18 08:50 Dose: 250 mls/hr Sodium Chloride (Normal Saline) 1,000 mls @ 100 mls/hr IV ASDIRECTED [facility] Last Admin: 05/24/18 07:04 Dose: 100 mls/hr Sodium Chloride (Normal Saline) 1,000 mls @ 250 mls/hr IV ASDIRECTED [facility] Stop: 05/23/18 16:14 Last Admin: 05/23/18 13:00 Dose: 250 mls/hr Influenza Virus Vaccine (Pharmacy To Dose - Influenza Vaccine) 1 each IM ONETIME ONE Stop: 05/23/18 10:42 Iopamidol (Isovue-370 (76%)) 100 ml IV . DIRECTED ONE Stop: 05/23/18 05:31 Last Admin: 05/23/18 06:48 Dose: 100 ml Ketorolac Tromethamine (Toradol) 30 mg IVPUSH ONETIME ONE Stop: 05/23/18 04:44 Last Admin: 05/23/18 04:54 Dose: 30 mg Lidocaine HCl (Xylocaine 2% Jelly) 5 ml MUCMEM ONETIME ONE Stop: 05/23/18 07:22 Last Admin: 05/23/18 08:15 Dose: Not Given Lidocaine HCl (Glydo) Confirm Administered Dose 6 ml .ROUTE .STK-MED ONE Stop: 05/23/18 07:30 Last Admin: 05/23/18 07:47 Dose: 6 ml Ondansetron HCl (Zofran) 8 mg IVPUSH ONETIME ONE Stop: 05/23/18 04:44 Last Admin: 05/23/18 04:54 Dose: 8 mg
== END 2018-05-24 16:50 | disposition home or self-care (01) | DRG 247 ==
LOC: FB.ED 04:22 → FB.MS 09:29
PROVIDERS: ADMIT Family Medicine; ATTEND Family Medicine
DX: K56.600 Partial intestinal obstruction, unspecified as to cause (principal); R03.0 Elevated blood-pressure reading, without diagnosis of hypertension; Z87.19 Personal history of other diseases of the digestive system; Z90.49 Acquired absence of other specified parts of digestive tract; H54.7 Unspecified visual loss; Z88.6 Allergy status to analgesic agent; Z88.5 Allergy status to narcotic agent; Z72.0 Tobacco use; R16.1 Splenomegaly, not elsewhere classified; R18.8 Other ascites
CPT/HCPCS: 36415; 74177; 80053; 81001; 82150; 83605; 85025; 96361; 96374; 96375; 99285; A9270-GY; J1650; J1885; J2405; J3010; J7030; J7120; Q9963; Q9967

== ENCOUNTER 2019-06-26 20:46 | Emergency (ER) | payer BC ==
[2019-06-26 21:46] VITALS: BP 151/90; PULSE 88
--- NOTE | 2019-06-27 03:32 | ER ---
DATE SEEN: 06/26/2019 CHIEF COMPLAINT: Skin tag. HISTORY OF PRESENT ILLNESS: This is a 54-year-old male complaining of skin tag that he has had on the scrotum for several years, but recently today he noted that it is bleeding. No trauma. No pain. He also noted some engorgement of the veins around it. REVIEW OF SYSTEMS: No fever or chills. No urinary symptoms. ALLERGIES: Aspirin and morphine. PAST MEDICAL HISTORY: Please see the [facility]. It includes a history of partial small bowel obstruction, tobacco abuse, and hernia repair. PHYSICAL EXAMINATION: GENERAL: He is a pleasant male. VITAL SIGNS: His blood pressure is 151/90, temperature 98.1, and oxygenation 100% on room air. GENITALIA: Revealed a marble-sized smooth dark growth. There was some bleeding at the base of the appendage in the scrotum. There was some engorgement of the veins, especially on the left side of the testicle. There was no tenderness of the testis. No penile masses or urethral discharge. IMPRESSION: Skin tag. PLAN: My suspicion was a hemangioma. I discussed excision at home, but the patient wanted it done today. I injected the area with lidocaine without epinephrine, used surgical scissors to excise it. A small wound which was noted, was closed with 3 stitches of 4-0 Prolene. There were no complications. I sent the skin tag to pathology. FOLLOWUP: The patient will have stitches removed in 1 week. Return to the ED with any worsening symptoms. /[id number] DAVID/SHAYNE
== END 2019-06-26 21:54 | disposition home or self-care (01) ==
LOC: FB.ED 20:46
DX: L91.8 Other hypertrophic disorders of the skin (principal)
CPT/HCPCS: 11200; 88305; 99283; J2001